=== PATIENT | female | born 1965 | race Caucasian/White ===

== ENCOUNTER 2018-11-18 12:14 | Emergency (ER) | payer BC ==
[2018-11-18] MEDS ORDERED: Acetaminophen Soln 160 MG/5 ML UD Cup PO ONE (12:33)
[2018-11-18 12:54] VITALS: BP 125/68
--- NOTE | 2018-11-18 13:03 | EDM.PDOC ---
ED HPI GENERAL MEDICAL PROBLEM - General Chief Complaint: Fever Stated Complaint: RX TO TICK BITE? Time Seen by Provider: 11/18/18 12:54 Source of Information: Reports: Patient History Limitations: Reports: No Limitations - History of Present Illness INITIAL COMMENTS - FREE TEXT/NARRATIVE: Patient presents with complaint of sore throat and fever that started during the night. During the night she says she also felt a tick bite her on the top of the head and she awoke and pulled it off immediately (she says she is very sensitive and can feel when ticks bite her). She says it was a regular wood tick and not engorged. She has tender lymph nodes on the left side of the neck. She has had similar symptoms after tick bites in the past but a little less severe. She has had UTIs in the past and doesn't have any of those symptoms currently. - Related Data Allergies Allergy/AdvReac Type Severity Reaction Status Date / Time chlorine Allergy Other Uncoded 11/18/18 12:31 Home Meds: Home Meds Escitalopram [Lexapro] 20 mg PO DAILY 06/17/15 [History] Levothyroxine Sodium [Unithroid] 25 mcg PO DAILY 06/17/15 [History] Melatonin 1 mg PO BEDTIME 06/17/15 [History] Multivitamin [Multivitamins] 1 tab PO DAILY 06/17/15 [History] Past Medical History Other Musculoskeletal History: hz left sided rib fx x2 ED ROS ENT - Review of Systems Review Of Systems: See Below Constitutional: Reports: Fever, Malaise HEENT: Reports: Throat Pain. Denies: Ear Discharge, Ear Pain, Eye Discharge, Throat Swelling Respiratory: Denies: Shortness of Breath, Cough Cardiovascular: Denies: Chest Pain, Lightheadedness, Syncope GI/Abdominal: Denies: Abdominal Pain, Vomiting : Denies: Discharge, Dysuria, Flank Pain, Frequency Musculoskeletal: Reports: No Symptoms Skin: Denies: Cyanosis, Jaundice, Mottled, Pallor, Diaphoresis Neurological: Reports: Headache. Denies: Confusion, Syncope, Trouble Speaking Psychiatric: Denies: Agitation, Confusion ED EXAM, ENT - Physical Exam Exam: See Below Exam Limited By: No Limitations General Appearance: Alert, WD/WN, No Apparent Distress Eye Exam: Bilateral Eye: EOMI, Normal Inspection, PERRL Ears: Normal External Exam, Normal Canal, Hearing Grossly Normal, Normal TMs Nose: Normal Inspection, Normal Mucousa, No Blood Mouth/Throat: Normal Lips, Pharyngeal Erythema, Throat Pain, Tonsillar Erythema , Tonsillar Exudates. No: Peritonsillar Mass, Throat Swelling, Tonsillar Swelling, Trismus, Uvular Deviation, Uvular Edema Head: Atraumatic, Normocephalic Neck: Tender Lateral (left anterior) Respiratory/Chest: No Respiratory Distress, Lungs Clear, Normal Breath Sounds, No Accessory Muscle Use Cardiovascular: Regular Rate, Rhythm, No Murmur GI/Abdominal: Soft, Non-Tender, No Organomegaly, No Distention Back: No: CVA Tenderness (L), CVA Tenderness (R) Extremities: Normal Inspection, Normal Range of Motion Neurological: Alert, Oriented, Normal Cognition, No Motor/Sensory Deficits Psychiatric: Normal Affect, Normal Mood Skin: Warm, Dry, Intact, Normal Color, No Rash Lymphatic: Adenopathy (anterior cervical chains bilat) Course - Vital Signs Last Recorded V/S: Last Vital Signs Temp 103.3 F H 11/18/18 13:12 Pulse 102 H 11/18/18 12:20 Resp 16 11/18/18 12:20 BP 125/68 11/18/18 12:20 Pulse Ox 97 11/18/18 12:20 - Orders/Labs/Meds Labs: Laboratory Tests 11/18/18 11/18/18 Range/Units 12:40 12:40 WBC 13.58 H (5.00-10.00) 10^3/uL RBC 4.72 (3.80-5.50) 10^6/uL Hgb 14.0 (12.0-16.0) g/dL Hct 41.5 (37.0-47.0) % MCV 87.9 D (82.0-92.0) fL MCH 29.7 (27.0-31.0) pg MCHC 33.7 (32.0-36.0) g/dL RDW 14.4 (11.5-14.5) % Plt Count 215 (150-400) 10^3/uL MPV 9.4 (7.4-10.4) fL Immature Gran % (Auto) 0.3 (0.0-5.0) % Neut % (Auto) 86.7 H (50.0-70.0) % Lymph % (Auto) 6.1 L (20.0-40.0) % [place] % (Auto) 6.8 (2.0-8.0) % Eos % (Auto) 0.0 L (1.0-3.0) % Baso % (Auto) 0.1 (0.0-1.0) % Immature Gran # (Auto) 0.04 (0.00-0.50) 10^3/uL Neut # (Auto) 11.77 H (2.50-7.00) 10^3/uL Lymph # (Auto) 0.83 L (1.00-4.00) 10^3/uL [place] # (Auto) 0.93 H (0.10-0.80) 10^3/uL Eos # (Auto) 0.00 L (0.10-0.30) 10^3/uL Baso # (Auto) 0.01 (0.00-0.10) 10^3/uL Sodium 139 (136-145) mmol/L Potassium 4.0 (3.3-5.3) mmol/L Chloride 99 (98-115) mmol/L Carbon Dioxide 27.5 (21.0-32.0) mmol/L Anion Gap 16.5 H (5-15) mmol/L BUN 11 (6-25) mg/dL Creatinine 0.89 (0.51-1.17) mg/dL Est Cr Clr Drug Dosing 65.02 mL/min Estimated GFR (MDRD) > 60 mL/min Glucose 121 H (75 - 99) mg/dL Calcium 8.7 (8.7-10.3) mg/dL Total Bilirubin 0.5 (0.2-1.0) mg/dL AST 19 (15-37) U/L ALT 22 (12-78) U/L Alkaline Phosphatase 81 (46-116) IU/L C-Reactive Protein 9.2 H (0.0-0.9) mg/dL Total Protein 8.1 (6.4-8.2) g/dL Albumin 3.71 (3.00-4.80) g/dL Meds: Medications Discontinued Medications Generic Name Dose Route Start Last Admin Trade Name Freq PRN Reason Stop Dose Admin Acetaminophen 1,000 mg 11/18/18 12:33 11/18/18 13:12 Tylenol Solution PO 11/18/18 12:34 960 mg ONETIME ONE Administration - Re-Assessments/Exams Free Text/Narrative Re-Assessment/Exam: 11/18/18 13:19 Swab shows positive Group A Strep. Discussed findings and recommendations with patient. She was given Tylenol for fever and pain control prior to leaving and will leaf size picker her Abx and start immediately. Patient discharged to home in stable condition. Departure - Departure Time of Disposition: 13:15 Disposition: Home, Self-Care 01 Condition: Good Clinical Impression: Acute streptococcal pharyngitis - Discharge Information Instructions: Strep Throat Referrals: Salima Hobbs PA-C [Primary Care Provider] - Forms: ED Department Discharge Additional Instructions: 1. Drink 8 cups of water daily. 2. Take the Augmentin as directed. 3. You can use Tylenol vs Ibuprofen as needed for fever control. 4. Follow up with your PCP if not resolving in a few days or [facility] if worsening. 5. Return to ER as needed.
[2018-11-18 13:10] LABS: ANION GAP 16.5 mmol/L (5-15); CHLORIDE,CL 99 mmol/L (98-115); SODIUM,NA 139 mmol/L (136-145)
== END 2018-11-18 13:35 | disposition home or self-care (01) ==
LOC: KA.ED 12:14
DX: J02.0 Streptococcal pharyngitis (principal); Z88.8 Allergy status to other drugs, medicaments and biological substances; Z79.899 Other long term (current) drug therapy
CPT/HCPCS: 36415; 80053; 85025; 86140; 87430; 99283

== ENCOUNTER 2021-08-19 17:40 | Emergency (ER) | payer OTHER ==
[2021-08-19 17:53] VITALS: BP 144/89; PULSE 90
[2021-08-19] MEDS: Acetaminophen/HYDROcodone 325-10 MG Tab PO ONE (18:30)
== END 2021-08-19 19:37 ==
LOC: KA.ED 17:40 → SUPCPDRO 17:40 → KA.ED 19:37
DX: S52.502A Unspecified fracture of the lower end of left radius, initial encounter for closed fracture (principal); S52.612A Displaced fracture of left ulna styloid process, initial encounter for closed fracture; Z88.8 Allergy status to other drugs, medicaments and biological substances; W18.30XA Fall on same level, unspecified, initial encounter
CPT/HCPCS: 29125; 73110-LT; 99283; 99284-25; A9270-GY

== ENCOUNTER 2024-02-13 20:55 | Emergency (ER) | payer BC ==
[2024-02-14 03:00] VITALS: BP 138/71; PULSE 82
== END 2024-02-13 22:15 | disposition home or self-care (01) ==
LOC: KA.ED 20:55 → SUPCPDRO 20:55 → KA.ED 22:15
DX: S82.022A Displaced longitudinal fracture of left patella, initial encounter for closed fracture (principal); M89.8X6 Other specified disorders of bone, lower leg; E66.9 Obesity, unspecified; Z68.38 Body mass index [BMI] 38.0-38.9, adult; Z79.899 Other long term (current) drug therapy; Z88.8 Allergy status to other drugs, medicaments and biological substances; W18.30XA Fall on same level, unspecified, initial encounter
CPT/HCPCS: 73562-LT; 99283